=== PATIENT | male | born 1970 | race Native Hawaiian/Other Pacific Islander ===

== ENCOUNTER 2019-06-01 07:12 | Outpatient (CLI) | payer OTHER ==
[2019-06-01 08:16] LABS: PLATELET COUNT 290 K/uL (142-355)
[2019-06-01 08:25] LABS: POTASSIUM 4.2 mmol/L (3.6-5.2)
== END 2019-06-01 21:51 | disposition home or self-care (01) ==
LOC: LABW 07:12
PROVIDERS: Family Medicine
DX: R53.83 Other fatigue (principal); E34.9 Endocrine disorder, unspecified; E55.9 Vitamin D deficiency, unspecified; E03.9 Hypothyroidism, unspecified
CPT/HCPCS: 36415; 80053; 80061; 81000; 82306; 82607; 82670; 83036; 84153; 84402; 84403; 84436; 84443; 84481; 84550; 85027; 86141; 86376

== ENCOUNTER 2020-02-04 08:37 | Outpatient (CLI) | payer OTHER | END 2020-02-04 21:06 | disposition home or self-care (01) | LOC: LABW 08:37 | DX: E29.0 Testicular hyperfunction (principal) | CPT/HCPCS: 36415; 82670; 84153; 84403 ==

== ENCOUNTER 2020-08-07 06:57 | Outpatient (CLI) | payer OTHER ==
[2020-08-07 07:40] LABS: PLATELET COUNT 251 K/uL (142-355)
[2020-08-07 08:51] LABS: POTASSIUM 4.2 mmol/L (3.6-5.2)
== END 2020-08-07 18:55 | disposition home or self-care (01) ==
LOC: LABW 06:57
PROVIDERS: ATTEND Family Medicine
DX: Z00.00 Encounter for general adult medical examination without abnormal findings (principal); R53.83 Other fatigue; E34.9 Endocrine disorder, unspecified; E55.9 Vitamin D deficiency, unspecified; E03.9 Hypothyroidism, unspecified
CPT/HCPCS: 36415; 80053; 80061; 81000; 82306; 82607; 82670; 82728; 83036; 84153; 84402; 84403; 84436; 84443; 84481; 84550; 85027; 86140; 86376